=== PATIENT | female | born 1975 | race Asian ===

== ENCOUNTER 2016-06-12 13:13 | Outpatient (CLI) | payer BC ==
[~2016-06-12] VITALS: Ht 160 cm; Wt 85.0 kg
[~2016-06-12 13:13] MED LIST: KENC1 TOP
[2016-06-12 13:16] VITALS: Ht 160 cm; Wt 85.0 kg
[2016-06-12 13:24] VITALS: BP 123/68; PULSE 107; RESP 17
[2016-06-12] MEDS ORDERED: FER325 PO (13:26)
[2016-06-12] MEDS ORDERED: PRENAT PO (13:26)
[2016-06-12 13:42] LABS: URINE BLOOD (Dip) POC 3+ (NEGATIVE)
[2016-06-12 14:03] LABS: ADD UMIC YES; URINE BILIRUBIN (Dip) NEGATIVE (NEGATIVE); URINE BLOOD (Dip) 3+ (NEGATIVE); URINE COLOR LT. YELLOW (YELLOW); URINE GLUCOSE (Dip) NEGATIVE (NEGATIVE); URINE KETONES (Dip) NEGATIVE (NEGATIVE); URINE LEUKOCYTE ESTERASE (Dip) 3+ (NEGATIVE); URINE NITRITE (Dip) NEGATIVE (NEGATIVE); URINE TOTAL PROTEIN (Dip) NEGATIVE (NEGATIVE); URINE UROBILINOGEN (Dip) 0.2 E.U./dL (0.1-1.0)
[2016-06-12 14:15] LABS: BACTERIA,URINE FEW; URINE RBCS 0-2 /HPF (0)
--- NOTE | 2016-06-12 15:28 | RADRPT ---
PROCEDURE: Limited obstetric ultrasound CLINICAL INDICATION: distress TECHNIQUE: Multiple transverse and longitudinal grayscale images of the pelvis were obtained petersen sabdominally and endovaginally.. COMPARISON: same day FINDINGS: There is a single live intrauterine gestation in a vertex position with a heart rate of 149 bp m. The placenta is posterior. There is no evidence of placental abruption or placenta previa. The cervix is closed and measures 4.3 cm in length. RPTAT: AA IMPRESSION: The cervix is closed and measures 4.3 cm in length. Physician Lynette Date Time Electronically viewed and signed by Physician Lynette on 06/12/2016 15:28 RA/
--- NOTE | 2016-06-12 15:39 | RADRPT ---
PROCEDURE: US OB. CLINICAL INDICATION: . Abnormal vaginal bleeding. TECHNIQUE: Multiple sonographic images of the uterus were obtained. The images were revi ewed on a PACS workstation. COMPARISON: No prior studies are available for comparison. FINDINGS: There is a single live intrauterine gestation. heart rate is 149 beats per minute. Measurements were made in order to determine age. The results are as follows: BPD = unobtainable HC = 27.87 cm. AC = 28.83 cm. FL = 5.91 cm. Estimated weight is 1842 +/- 276 grams. LMP growth percentile is 46 %. Menstrual age by ultrasound dates is 31 weeks 3 days. The estimated date of delivery is 08/11/2016. Position is cephalic and placenta is posterior grade 1. There is no evidence for an abruption or marc centa previa. IMPRESSION: 1. Single live intrauterine gestation of 31 weeks 3 days menstrual age by ultrasound dates. 2. The estimated date of delivery is 08/11/2016. RPTAT: QQ .Oswaldo Coyne MD, Date Time Electronically viewed and signed by .Oswaldo Coyne MD, on 06/12/2016 15:38 .R/
--- NOTE | 2016-06-12 15:45 | RADRPT ---
PROCEDURE: US OB biophysical profile. CLINICAL INDICATION: Bleeding TECHNIQUE: Multiple sonographic images of the pelvis were obtained. The images were reviewed on a PACS workstation. COMPARISON: No prior studies are available for comparison. FINDINGS: There is a single viable intrauterine gestation. Cardiac activity is present with 149 beats per min mei. There is a vertex presentation. The placenta is posterior. There is no evidence of placental abruption. There is a mildly elevated amount of amniotic fluid with an STEPHANIE = 19.8 cm. Biophysical profile: movement 2/2 tone 2/2. breathing 2/2 STEPHANIE 2/2 Total 12/23 RPTAT: AA . IMPRESSION: Normal biophysical profile. Mildly elevated STEPHANIE of 19.8 cm. Physician Lynette Date Time Electronically viewed and signed by Physician Lynette on 06/12/2016 15:45 RA/
[2016-06-12] MEDS ORDERED: CEFTRIAXONE 1 GM INJ IM ONE (17:00)
--- NOTE | 2016-06-12 17:14 | TRIAGE ---
OB Triage Datetime Report Generated by CPN: 06/12/2016 17:14 Datetime: 06/12/2016 16:10 Vaginal Exam Dilatation (cms): 0.0 Effacement (%): 0 Station: -3 Exam By: DR FOROOHAR Vaginal Bleeding: None Cervix, Consistency: Moderate Cervix, Position: Posterior Presentation 'A': Cephalic Datetime: 06/12/2016 16:00 Labor Evaluation Frequency: X3 Monitor Mode: External Duration (sec)2399: 50-70 Quality: Mild Pattern: Normal: <= 5 Contractions in 10 Minutes Resting Tone [place]: Relaxed Heart Rate FHR Baseline Rate: 145 Monitor Mode: External US FHR Baseline Changes: No Baseline Change Variability: Moderate 6-25 bpm Decelerations: None Category: Category I Pain Assessment Pain Scale: 0 Pain Presence: None/Denies Pain Type: N/A Datetime: 06/12/2016 15:00 Labor Evaluation Frequency: X4 Monitor Mode: External Duration (sec)2399: 50-80 Quality: Mild Pattern: Normal: <= 5 Contractions in 10 Minutes Resting Tone [place]: Relaxed Heart Rate FHR Baseline Rate: 150 Monitor Mode: External US FHR Baseline Changes: No Baseline Change Variability: Moderate 6-25 bpm Accelerations: 15X15 Decelerations: None Category: Category I Comments: AUDBLE MOVEMENT WITH LOSS OF CONTACT Pain Assessment Pain Scale: 0 Pain Presence: None/Denies Pain Type: N/A Membrane Status: Intact Datetime: 06/12/2016 14:00 Labor Evaluation Frequency: X3 Monitor Mode: External Duration (sec)2399: 50-70 Quality: Mild Pattern: Normal: <= 5 Contractions in 10 Minutes Resting Tone [place]: Relaxed Heart Rate FHR Baseline Rate: 145 FHR Baseline Changes: No Baseline Change Variability: Moderate 6-25 bpm Decelerations: None Category: Category I Pain Assessment Pain Scale: 0 Pain Presence: None/Denies Pain Type: N/A Membrane Status: Intact Datetime: 06/12/2016 13:27 EGA: 31.4 Datetime: 06/12/2016 13:25 Assessment Type: Triage Maternal Assessment Level of Consciousness: Fully Conscious DTR's/Clonus: DTRs 2+; No Clonus Headache: Denies Blurred Vision: No Respiratory Effort: Unlabored; Regular Rhythm Breath Sounds, Left: Clear and Equal Breath Sounds, Right: Clear and Equal Nausea/Vomiting: Denies RUQ Epigastric Pain: Denies Lower Extremities Edema: None Degree: None Upper Extremities Edema: None Degree: None Facial Edema: None Fall Risk Assessment History of Falling: (0) No Secondary Diagnosis: (0) No Ambulatory Aid: (0) Bedrest/Nurse Assist IV Therapy: (0) No Gait: (0) Normal/Bedrest/Immobile Mental Status: (0) Oriented to Own Ability Fall Score: 0 Fall Risk Score Definition: No Risk: No action required Datetime: 06/12/2016 13:23 Pain Assessment Pain Scale: 0 Pain Presence: None/Denies Pain Type: N/A Datetime: 06/12/2016 13:11 Time of Arrival: 06/12/2016 13:11 Arrived By: Ambulatory Arrived From: Home Chief Complaint: PT PRESENTS TO TRIAGE COMPLAINING OF SOME BROWNISH BLOOD SINCE LAST NIGHT AND RUSSELL GHT RED BLOOD WHEN WIPING THIS MORNING Movement: Present Contractions: Irregular Rupture of Membranes: Denies Vaginal Bleeding: Scant Vaginal Discharge: Present Recent Sexual Intercouse: Denies Abdominal Trauma: Not Applicable Patient Complaints: Cramping; Back Pain Initial Plan: EFM/US/UA
== END 2016-06-12 17:10 | disposition home or self-care (01) ==
LOC: OBT 13:13 → L-D 13:15 → OBT 17:10
PROVIDERS: ATTEND Obstetrics & Gynecology
DX: O60.03 Preterm labor without delivery, third trimester (principal); O09.513 Supervision of elderly primigravida, third trimester; Z3A.31 31 weeks gestation of pregnancy
CPT/HCPCS: 76815; 76817; 76818; 81001; 87086; 96372; J0696; Z7500; 81003; G0463

== ENCOUNTER 2016-06-13 08:58 | Inpatient (IN) | payer BC ==
[~2016-06-13] VITALS: Ht 162.6 cm; Wt 84.3 kg
[~2016-06-13 08:58] MED LIST changes: +FER325 PO; -KENC1 TOP; +PRENAT PO
[2016-06-13 09:24] VITALS: Ht 162.6 cm; Wt 84.3 kg
[2016-06-13] MEDS ORDERED: LACTATED RINGER'S 1,000 ML IV SCH (09:36)
[2016-06-13] MEDS ORDERED: OXYTOCIN 30 UNITS/LR 500 ML IV PRN ×3 (10:00→14:30)
[2016-06-13] MEDS ORDERED: OXYTOCIN 30 UNITS/LR 500 ML IV SCH ×2 (10:00)
[2016-06-13] MEDS ORDERED: METHYLERGONOVINE 0.2 MG INJ IM PRN ×3 (10:00→14:30)
[2016-06-13] MEDS ORDERED: LIDOCAINE 1% (MPF) 30 ML INJ INJ PRN (10:00)
[2016-06-13] MEDS ORDERED: AMPICILLIN 2 GM/NS (PMX) 100 ML IV ONE (10:00)
[2016-06-13] MEDS ORDERED: LACTATED RINGER'S 1,000 ML IV PRN (10:00)
[2016-06-13] MEDS ORDERED: MISOPROSTOL 200 MCG TAB PR PRN ×3 (10:00→14:30)
[2016-06-13] MEDS ORDERED: CARBOPROST 250 MCG INJ IM PRN ×3 (10:00→14:30)
[2016-06-13] MEDS ORDERED: BUTORPHANOL 2 MG INJ IV PRN ×2 (10:00)
[2016-06-13] MEDS ORDERED: ONDANSETRON 4 MG INJ ONE (10:17)
[2016-06-13] MEDS ORDERED: CITRIC ACID/NA CITRATE 30 ML CUP ONE (10:17)
[2016-06-13] MEDS ORDERED: METOCLOPRAMIDE 10 MG INJ ONE (10:18)
[2016-06-13] MEDS ORDERED: CEFAZOLIN 2 GM/50 ML (PMX) 50 ML IVPB ONE (10:18)
[2016-06-13 10:22] LABS: EOSINOPHILS # 0.1 10^3/ul (0.0-0.5); EOSINOPHILS % 0.4 % (0.0-7.0); HEMATOCRIT 41.8 % (37.0-47.0); HEMOGLOBIN 14.4 g/dl (12.0-16.0); LYMPHOCYTES % 7.7 % (15.0-51.0); MEAN CORPUSCULAR HEMOGLOBIN 30.5 pg (29.0-33.0); MEAN CORPUSCULAR HGB CONC 34.4 g/dl (32.0-37.0); MEAN CORPUSCULAR VOLUME 88.8 fl (82.0-101.0); MONOCYTE # 0.6 10^3/ul (0.3-0.9); MONOCYTES % 4.8 % (0.0-11.0); NEUTROPHIL # 11.1 10^3/ul (1.6-7.5); NEUTROPHILS % 87.1 % (39.0-77.0); PLATELET COUNT 134 10^3/UL (140-440); RED BLOOD COUNT 4.71 10^6/ul (4.20-5.40); RED CELL DISTRIBUTION WIDTH 14.6 % (11.5-14.5); UNCORRECTED WBC 12.7 10^3/ul (4.8-10.8); WHITE BLOOD COUNT 12.7 10^3/ul (4.8-10.8)
[2016-06-13] MEDS ORDERED: LACTATED RINGER'S 1,000 ML IV ONE (10:25)
[2016-06-13 10:27] LABS: CONDITION 1; LH ANALYZER COMMENTS 1; SUSPECT 1
[2016-06-13] MEDS ORDERED: ONDANSETRON 4 MG INJ IV STA (10:28)
[2016-06-13] MEDS ORDERED: FAMOTIDINE 20 MG INJ IV ONE ×2 (10:30→11:00)
[2016-06-13] MEDS ORDERED: HYDROmorphONE (0.2 MG/ML) 10ML SYG IV PRN ×3 (10:30)
[2016-06-13] MEDS ORDERED: METOCLOPRAMIDE 10 MG INJ IV ONE (10:30)
[2016-06-13] MEDS ORDERED: ONDANSETRON 4 MG INJ IV PRN ×2 (10:30→14:00)
[2016-06-13] MEDS ORDERED: PROCHLORPERAZINE 10 MG INJ IV PRN ×2 (10:30→14:00)
[2016-06-13] MEDS ORDERED: DIPHENHYDRAMINE 50 MG INJ IV PRN ×2 (10:30→14:00)
[2016-06-13] MEDS ORDERED: CITRIC ACID/NA CITRATE 30 ML CUP PO ONE ×2 (10:30)
[2016-06-13] MEDS ORDERED: CEFAZOLIN 2 GM/50 ML (PMX) 50 ML IV SCH (10:30)
[2016-06-13] MEDS ORDERED: FENTAnyl 50 MCG/ML VIAL ONE (10:30)
[2016-06-13] MEDS ORDERED: MEPERIDINE 25 MG INJ IV PRN (10:30)
[2016-06-13] MEDS ORDERED: FENTAnyl 50 MCG/ML VIAL IV PRN (10:30)
[2016-06-13] MEDS ORDERED: morphine SULFATE/PF (10 MG/10 ML) INJ ONE (10:30)
[2016-06-13] MEDS ORDERED: KETOROLAC 30 MG INJ IV PRN (10:30)
[2016-06-13 10:31] LABS: INR 0.97; PROTIME 12.9 Sec (12.2-14.2)
[2016-06-13 10:32] LABS: PARTIAL THROMBOPLASTIN TIME 25.4 Sec (25.0-35.0)
[2016-06-13] MEDS ORDERED: PHENYLephrine (100 MCG/ML) 5ML SYG ONE ×2 (10:58→11:20)
[2016-06-13] MEDS ORDERED: EPHEDrine SULFATE 50 MG/5 ML SYG ONE (11:20)
[2016-06-13 13:00] VITALS: BP 143/86; PULSE 109; RESP 20
[2016-06-13 13:36] LABS: POLYCHROMASIA 1+
[2016-06-13] MEDS ORDERED: NALOXONE (0.4 MG/ML) INJ IV PRN (14:00)
[2016-06-13] MEDS ORDERED: HYDROmorphONE 1 MG/ML SYG IV PRN ×2 (14:00)
[2016-06-13] MEDS ORDERED: ZOLPIDEM 5 MG TAB PO PRN (14:00)
[2016-06-13] MEDS ORDERED: AMPICILLIN 1 GM/NS (PMX) 50 ML IV SCH (14:00)
[2016-06-13 14:30] VITALS: BP 101/55; PULSE 112; RESP 20
[2016-06-13] MEDS ORDERED: LANOLIN 7 GM TUBE TOP PRN (14:30)
[2016-06-13] MEDS ORDERED: OXYCODONE/ACETAMINOPHEN (5/325) TAB PO PRN (14:30)
[2016-06-13] MEDS ORDERED: CEFAZOLIN 1 GM/50 ML (PMX) 50 ML IVPB SCH ×2 (14:30→19:00)
[2016-06-13] MEDS ORDERED: ACETAMINOPHEN/CODEINE #3 TAB PO PRN ×2 (14:30)
[2016-06-13] MEDS: OXYTOCIN 30 UNITS/LR 500 ML IV SCH ×3 (14:38→22:59)
[2016-06-13 15:00] VITALS: BP 103/65; PULSE 104; RESP 18
[2016-06-13 16:00] VITALS: BP 96/57; PULSE 100; RESP 18
[2016-06-13] MEDS: KETOROLAC 30 MG INJ IV PRN (18:34)
[2016-06-13 20:45] VITALS: BP 107/62; PULSE 96; RESP 18
[2016-06-13] MEDS: SENNA/DOCUSATE NA (8.6MG/50MG) TAB PO SCH (21:13)
[2016-06-14 00:45] VITALS: BP 101/57; PULSE 97; RESP 20
[2016-06-14] MEDS: KETOROLAC 30 MG INJ IV PRN ×2 (01:10→09:39)
[2016-06-14] MEDS: OXYTOCIN 30 UNITS/LR 500 ML IV SCH ×5 (03:37→18:14)
[2016-06-14 04:00] VITALS: BP_SYST 109; BP_SYST 115; BP_DIAS 63; BP_DIAS 66; PULSE 66; PULSE 97; RESP 16
[2016-06-14 08:00] VITALS: BP 104/55; PULSE 96; RESP 20
[2016-06-14 08:35] LABS: BASOPHILS % 0.3 % (0.0-2.0); EOSINOPHILS # 0.2 10^3/ul (0.0-0.5); EOSINOPHILS % 1.7 % (0.0-7.0); HEMATOCRIT 32.3 % (37.0-47.0); HEMOGLOBIN 11.4 g/dl (12.0-16.0); LYMPHOCYTES # 1.5 10^3/ul (0.8-2.9); LYMPHOCYTES % 14.4 % (15.0-51.0); MEAN CORPUSCULAR HEMOGLOBIN 31.3 pg (29.0-33.0); MEAN CORPUSCULAR HGB CONC 35.2 g/dl (32.0-37.0); MEAN CORPUSCULAR VOLUME 88.9 fl (82.0-101.0); MONOCYTE # 0.9 10^3/ul (0.3-0.9); NEUTROPHIL # 8.1 10^3/ul (1.6-7.5); NEUTROPHILS % 75.6 % (39.0-77.0); PLATELET COUNT 112 10^3/UL (140-440); RED BLOOD COUNT 3.64 10^6/ul (4.20-5.40); RED CELL DISTRIBUTION WIDTH 14.4 % (11.5-14.5); UNCORRECTED WBC 10.8 10^3/ul (4.8-10.8); WHITE BLOOD COUNT 10.8 10^3/ul (4.8-10.8)
[2016-06-14 08:37] LABS: CONDITION 1
[2016-06-14] MEDS: SENNA/DOCUSATE NA (8.6MG/50MG) TAB PO SCH ×2 (09:39→20:50)
[2016-06-14] MEDS: IBUPROFEN 600 MG TAB PO SCH ×3 (12:00→23:31)
[2016-06-14] MEDS: OXYCODONE/ACETAMINOPHEN (5/325) TAB PO PRN ×2 (13:44→18:55)
[2016-06-14 16:00] VITALS: BP 106/59; PULSE 86; RESP 18
[2016-06-14 19:30] VITALS: BP 124/68; PULSE 105; RESP 18
--- NOTE | 2016-06-14 22:54 | QN ---
Documentation Comment POD #1 s/p emergency C/S for IUP at 31 w 5 d, breech, active labor. Mom in NICU visiting baby. T= 98.6 BP 124/68. Per RN incision C/D/I and Lochia minimal. WBC 10.8 Hgb 11.4. Plts 112K. P; Continue care. BRENDA MARQUEZ MD Jun 14, 2016 22:54
[2016-06-15] MEDS: OXYCODONE/ACETAMINOPHEN (5/325) TAB PO PRN ×3 (01:46→20:17)
[2016-06-15] MEDS: OXYTOCIN 30 UNITS/LR 500 ML IV SCH ×3 (02:14→22:14)
[2016-06-15 04:00] VITALS: BP 113/66; PULSE 92; RESP 18
[2016-06-15] MEDS: IBUPROFEN 600 MG TAB PO SCH ×3 (05:30→17:32)
[2016-06-15 08:01] VITALS: BP 127/76; PULSE 86; RESP 18
[2016-06-15] MEDS: SENNA/DOCUSATE NA (8.6MG/50MG) TAB PO SCH ×2 (08:12→20:16)
--- NOTE | 2016-06-15 10:24 | PN ---
Date/Time of Note Date/Time of Note DATE: 06/15/16 TIME: 10:22 OB Subjective Subjective Subjective Postop day 2 Afebrile abdomen soft uterus firm lochia normal extremity normal incision dry bowel sound present had BM may consider discharge home tomorrow WILBER ROE MD Jun 15, 2016 10:24
--- NOTE | 2016-06-15 11:55 | HP ---
Date/Time of Note Date/Time of Note DATE: 06/15/16 TIME: 11:21 OB - History Hx of Present Free Text/Dictation This is a 41 years old female 7 para 6 admitted to [facility] labor and delivery in active labor on admission pelvic examination cervical dilatation 9 cm footling breech presentation, intact, bulging membrane patient is being prepared for emergency at 31 week 5.days. 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 no other hospitalization for any medical or surgical condition reported in her record Allergies she is allergic to doxycycline Infectious history negative for gonorrhea chlamydia syphilis HIV or human papillomavirus Genetic history advanced maternal age Physical exam 5 feet 4 Temperature 98 point pulse 103 respiration 20 blood pressure 114/55 Head ears nose and throat negative Neck supple no thyromegaly Lungs clear to P&A Heart normal sinus rhythm no murmur Breasts bilateral breast examination is consistent with the stage of the no abnormal palpable mass no nipple retraction no axillary adenopathy Abdomen fundal height 31/32 cm from symphysis pubis to the height of the fundus , Abrahan maneuver breech presentation Pelvic examination: Normal vaginal introitus cervix 9 cm bulging bag footling breech presentation Extremity no varicosities Impression: Intrauterine at 31 weeks 5 days breech presentation in active labor. Plan: Primary ,patient was counseled regarding the procedure and complications of the surgery included but not limited to wound infection wound hematoma or hemorrhage , she consented for the primary . Estimated Due Date: Aug 10, 2016 : 7 Para: 6 Care: Limited Care Ultrasounds: Normal mid trimester US Obstetrical Complications: Gestational Diabetes Medical Complications: None Past Family/Social History * Past Medical, Surgical, Family and Obstetric Histories reviewed from chart. Rubella: immune RPR/VDRL: Negative GBS Status: Negative HBsAG: Unknown OB Admission Exam Vital Signs Vital Signs Vital Signs Date Time Temp Pulse Resp B/P Pulse Ox O2 Delivery O2 Flow Rate FiO2 06/15/16 08:01 97.9 86 18 127/76 Room Air Physical Exam HEENT: WNL Heart: Rhythm Normal Lungs: Clear, Equal Extremities: Normal Reflexes: Normal Cervical Dilatation: 9cm Effacement: 100% Station: Ballotable Membranes: Intact Heart Rate: 130's Accelerations: Accelerations Present Varibility: Marked Contractions on Admission: < 5 Minutes Apart Intensity: Firm Last 72 hours Lab Results CBC & BMP 06/13/16 09:50 06/14/16 07:14 WILBER ROE MD Jun 15, 2016 11:47
[2016-06-15 15:23] VITALS: BP 108/65; PULSE 97; RESP 18
--- NOTE | 2016-06-15 17:51 | OPR ---
DATE OF OPERATION: 06/15/2016 PREOPERATIVE DIAGNOSES: 1. Intrauterine at 31 weeks 5 days. 2. Footling breech presentation with cervical dilatation at 9 cm. POSTOPERATIVE DIAGNOSES: 1. at 31 weeks 5 days. 2. Breech presentation with cervical dilatation at 9 cm and bulging back. OPERATION PERFORMED: Primary transverse low cervical section. SURGEON: Wilber Carpenter MD MEDICAL BILLING AND CODING INSTRUCTOR: Dr. Nathaniel Aly ANESTHESIOLOGIST: Dr. Maria G Rousseau FINDINGS: Live baby boy with the 7 and 8. Baby weighed 2015 grams. DETAILS OF THE PROCEDURE: Under satisfactory spinal anesthesia, the patient was prepped and draped and placed in supine position, tilted to the left. Pfannenstiel incision was made, carried through the subcutaneous tissue. Bleeders brought under control with electrocautery. Fascia incised to the length of the incision. Rectus muscle divided in midline. Peritoneum exposed, entered through a t ransverse incision. Exploration of abdomen, gravid uterus, normal appearing tubes and ovaries. The bladder flap was developed. Transverse incision was made in the lower segment of the uterus. Amni otic sac ruptured. Clear amniotic fluid noted. Live baby boy was delivered from footling breech, which baby was delivered up to the chest and shoul ders were delivered without any difficulty. Head delivered with the Mauriceau maneuver. Nasal orop haryngeal suction was performed. Cord clamped after pulsations stopped. Baby handed to the neonata l team for immediate attention. The patient received 20 units of Pitocin. Placenta delivered manua lly intact. Uterine cavity cleaned with wet sponge and drainage established. Uterus closed in 2 la yers using Monocryl #1 in continuous fashion. Peritoneal cavity irrigated with warm saline. Sponge , needle and instrument reported to be correct. Abdominal peritoneum closed with 2-0 chromic catgut continuously. Rectus muscle approximated with few interrupted 2-0 chromic catgut. Fascia closed w ith #1 PDS in a continuous fashion. Subcutaneous tissue approximated with 2-0 chromic catgut and th e skin closed with mackenzie. Estimated blood loss 600 mL. Urine bag contained 200 to 300 mL of linda r urine. The patient tolerated procedure well, transferred to recovery room in a good condition. Dictated By: WILBER CHAMTAN/NTS Conf#: [id number] DID#: [id number]
[2016-06-15 20:00] VITALS: BP 112/78; PULSE 95; RESP 18
[2016-06-15 21:43] VITALS: BP 112/78; PULSE 95; RESP 18
[2016-06-16] MEDS: IBUPROFEN 600 MG TAB PO SCH ×3 (00:47→12:53)
[2016-06-16 04:00] VITALS: BP 113/74; PULSE 85; RESP 20
[2016-06-16 07:45] LABS: BASOPHILS % 0.2 % (0.0-2.0); EOSINOPHILS # 0.3 10^3/ul (0.0-0.5); EOSINOPHILS % 3.6 % (0.0-7.0); HEMATOCRIT 32.5 % (37.0-47.0); HEMOGLOBIN 11.4 g/dl (12.0-16.0); LYMPHOCYTES # 1.8 10^3/ul (0.8-2.9); LYMPHOCYTES % 21.6 % (15.0-51.0); MEAN CORPUSCULAR HEMOGLOBIN 31.1 pg (29.0-33.0); MEAN CORPUSCULAR HGB CONC 34.9 g/dl (32.0-37.0); MEAN PLATELET VOLUME 10.3 fl (7.4-10.4); MONOCYTE # 0.7 10^3/ul (0.3-0.9); MONOCYTES % 8.1 % (0.0-11.0); NEUTROPHIL # 5.6 10^3/ul (1.6-7.5); NEUTROPHILS % 66.5 % (39.0-77.0); PLATELET COUNT 128 10^3/UL (140-440); RED BLOOD COUNT 3.66 10^6/ul (4.20-5.40); RED CELL DISTRIBUTION WIDTH 15.2 % (11.5-14.5); UNCORRECTED WBC 8.5 10^3/ul (4.8-10.8); WHITE BLOOD COUNT 8.5 10^3/ul (4.8-10.8)
[2016-06-16 07:51] LABS: CONDITION 1; LH ANALYZER COMMENTS 1
[2016-06-16 08:05] VITALS: BP 137/80; PULSE 88; RESP 18
[2016-06-16] MEDS: SENNA/DOCUSATE NA (8.6MG/50MG) TAB PO SCH (08:15)
[2016-06-16] MEDS: OXYCODONE/ACETAMINOPHEN (5/325) TAB PO PRN (08:16)
[2016-06-16] MEDS ORDERED: DIPHTH/TET/ACEL PERTUSS (ADULT) 0.5 ML VIAL IM* ONE (09:00)
--- NOTE | 2016-06-16 09:52 | PD.PPDC ---
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
--- NOTE | 2016-06-16 10:02 | DS ---
Date/Time of Note Date/Time of Note DATE: 06/16/16 TIME: 09:58 Obstetrical Discharge Record Final Diagnosis Final Diagnosis: delivered Section Section: Primary Complications Labor Condition on Discharge Physical Assessment Last Vitals: Vital sign stable afebrile abdomen soft uterus firm incision dry bowel sounds present no bowel movements enema recommended before discharge patient discharged home with a follow-up instruction to make an appointment for removal of mackenzie in 4 days patient given prescription of of analgesics for postoperative pain. Voiding: Yes Bowel Movement: Yes Breast: Soft, non-tender, Filling Fundus: Firm Abdomen and Incision: Healing well clean and dry Calf Tenderness: No Patient Condition: Good WILBER ROE MD Jun 16, 2016 10:02
== END 2016-06-16 13:55 | disposition home or self-care (01) | DRG 765 ==
LOC: OBT 08:58 → L-D 08:59 → OBT 09:42 → L-D 09:44 → PP1 14:11 → UNDODISIN 06-16 16:31
PROVIDERS: ADMIT Obstetrics & Gynecology; ATTEND Obstetrics & Gynecology
PROC: 10D00Z1 Extraction of Products of Conception, Low, Open Approach (ICD-10-PCS; principal; 2016-06-15)
DX: O32.1XX0 Maternal care for breech presentation, not applicable or unspecified (principal); O60.14X0 Preterm labor third trimester with preterm delivery third trimester, not applicable or unspecified; O62.0 Primary inadequate contractions; O24.429 Gestational diabetes mellitus in childbirth, unspecified control; Z3A.31 31 weeks gestation of pregnancy; Z37.0 Single live birth
CPT/HCPCS: 85025; 85610; 85730; 86592; 86850; 86900; 86901; 87340; 88307; 90715; 99464; G0463; J0290; J0690; J1885; J2274; J2370; J2405; J2590; J2765; J3010; J7120